=== PATIENT | male | born 1940 | race Two or more races ===

== ENCOUNTER 2016-11-04 18:11 | Emergency (ER) | payer MEDICARE, MEDICAID ==
[~2016-11-04] VITALS: Ht 180.3 cm; Wt 68.0 kg
[~2016-11-04 18:11] MED LIST: ASPI-231 PO; BACL10TA PO; BRIM0.2S17 LEFTEYE; DOCU-94 PO; DORZ2SOL15 LEFTEYE; FLUC100T3 PO; GABA300C8 PO; HAL5T PO; LEV500T PO; LISI-646 PO; NITR-52 PO; OMEP20TA44 PO; QUE100T PO; ROSU10TA16; SENN-58 PO; [UNRECOGNIZED DRUG - OTHER] PO
[2016-11-04 18:53] LABS: Basophils # (auto) 0.1 uL; Basophils % (auto) 0.8 % (0.0-2.0); DEFINITIVE VIEW TRANSMISSION; Eosinophils # (auto) 0.1 uL; Eosinophils % (auto) 1.6 % (0.0-7.0); Hemoglobin 13.1 g/dL (13.5-17.5); Lymphocytes # (auto) 1.6 uL; Mean Corpuscular Hemoglobin 25.6 pg (28.0-32.0); Mean Platelet Volume 9.2 fL (7.4-10.4); Monocytes # (auto) 0.6 uL; Monocytes % (auto) 9.6 % (0.0-12.0); Neutrophils # (auto) 4.3 uL; Platelet Count (auto) 222 10^3/uL (140-450); Red Cell Distribution Width 16.9 % (11.6-16.0); White Blood Cell 6.7 10^3/uL (4.4-10.8)
[2016-11-04 19:13] LABS: Albumin 3.3 g/dL (3.4-5.0); Anion Gap 8 (5-15); Aspartate Aminotransferase 16 U/L (15-37); BUN/Creatinine Ratio 20.9; Blood Urea Nitrogen 19 mg/dL (7-18); Calcium 8.8 mg/dL (8.5-10.1); Carbon Dioxide 30 mmol/L (21-32); Chloride 102 mmol/L (98-107); GFR African American 104 mL/min; GFR Non-African American 86 mL/min; Glucose 93 mg/dL (74-106); Magnesium 2.4 mg/dL (1.6-2.6); Sodium 140 mmol/L (136-145)
[2016-11-04 19:28] LABS: Alkaline Phosphatase 66 U/L (45-117)
[2016-11-04 19:29] LABS: Bilirubin, Total 0.6 mg/dL (0.2-1.0); Total Protein 6.6 g/dL (6.4-8.2)
[2016-11-04 21:41] LABS: INR 1.06 (0.9-1.15); Partial Thromboplastin Time 27.7 sec (22.64-33.71); Prothrombin Time 10.9 sec (9.37-12.3)
[2016-11-04 22:01] LABS: Urine Bilirubin Negative (Negative); Urine Blood Negative /uL (Negative); Urine Color Yellow (Yellow); Urine Glucose Normal (Normal); Urine Ketone Negative (Negative); Urine Nitrite Negative (Negative); Urine RBC <1 /hpf (0 - 3); Urine Squamous Epithelial Cell FEW /hpf (<5); Urine Urobilinogen Normal (Negative); Urine pH 7.5 (5.0-8.0)
[2016-11-04 22:04] VITALS: BP 130/86
[2016-11-04 22:04] LABS: B-Type Natriuretic Peptide 48.37 pg/mL (0-100)
[2016-11-04 22:07] LABS: Temperature: 22.3 C (20.0-25.0)
== END 2016-11-04 23:32 | disposition home or self-care (01) ==
LOC: EDUNIT# 18:11 → ER 18:15
DX: K91.3 Postprocedural intestinal obstruction (principal); N39.0 Urinary tract infection, site not specified; E11.9 Type 2 diabetes mellitus without complications; K21.9 Gastro-esophageal reflux disease without esophagitis; I10 Essential (primary) hypertension; Z95.0 Presence of cardiac pacemaker; Z79.899 Other long term (current) drug therapy; Z79.82 Long term (current) use of aspirin
CPT/HCPCS: 36415; 71010; 74176; 80053; 81001; 83690; 83735; 83880; 84484; 85025; 85610; 85730; 93005